=== PATIENT | male | born 1940 | race Caucasian/White ===

== ENCOUNTER 2016-12-20 11:55 | Outpatient (CLI) | payer MEDICARE, OTHER ==
[~2016-12-20] VITALS: Ht 165.1 cm; Wt 68.0 kg
[~2016-12-20 11:55] MED LIST: ASPI-481 PO; ATOR10TA23 PO; MTF1000T PO; RANITIDINE PO; TAMS-14 PO
[2016-12-20 12:03] VITALS: BP 135/63; PULSE 73; RESP 18; Ht 165.1 cm; Wt 68.0 kg
[2016-12-20] MEDS ORDERED: GABA300C16 PO (12:17)
[2016-12-20] MEDS ORDERED: SIMV20TA PO (12:17)
[2016-12-20] MEDS ORDERED: METF500T4 PO (12:17)
[2016-12-20] MEDS ORDERED: NAPR-260 PO (12:17)
[2016-12-20] MEDS ORDERED: CELE100C PO (12:17)
[2016-12-20] MEDS ORDERED: TIMO15DR16 BOTH EYES (12:17)
[2016-12-20] MEDS ORDERED: MEMA10TA16 PO (12:17)
[2016-12-20] MEDS ORDERED: LIPA1CAP6 PO (12:17)
--- NOTE | 2016-12-20 15:35 | CONS ---
Date/Time of Note Date/Time of Note DATE: 12/20/16 TIME: 15:34 Assessment/Plan Assessment/Plan Additional Assessment/Plan [facility] INITIAL OUTPATIENT CONSULTATION NOTE DATE OF CONSULTATION: 12/20/2016 PLACE OF SERVICE: [facility] ([facility] at [facility] ASSESSMENT AND PLAN: A very-pleasant 76-year-old gentleman with comorbidities including diabetes and hypercholesterolemia and known pancreatic duct and bile duct dilatation since 2014, presenting with continued dilatation of the pancreatic duct and the common bile duct with possible 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 Given lack of significant weight loss and the duration of time under careful surveillance, it is less likely that the patient has a malignant process, but the possibility still exists. Given the last MRI was in March 2016, there is benefit to repeat the axial images, preferably with same modality with pancreas protocol MRI and a careful multidisciplinary tumor board presentation of the evidence in order to plan the rest of the care. My current suspicion is that we will be repeating patient's endoscopic ultrasound evaluation in about 3-4 months and to care for the patient as an outpatient. Patient may eventually need a Whipple procedure, but currently I do not see the need to perform this operation in an urgent fashion. I explained all of the above including the reasoning behind my recommendations to the patient and his family that included his and his daughter and answered all their questions to the best my ability. I believe the patient and family appear to understand and agreed with the plans. With above assessment, I recommended the followin. Repeat pancreas protocol MRI of the abdomen 2. Tumor marker checks including CA-19-9, CA 125, CEA, and alpha-fetoprotein 3. Multidisciplinary tumor board presentation 4. Follow-up with me in the office after above is done with the goal of accomplishing this in the next 2-3 weeks 5. Likely will need repeat endoscopic ultrasound in February or March 2017 Thank you very much for having me involved in the care of this very pleasant patient and wonderful family. Please feel free to contact me with any questions at [phone]. Disclaimer: Inadvertent spelling and grammatical errors are likely due to EHR/ dictation software use and do not reflect on the quality of delivered patient care. Updated clinical summary: A very-pleasant 76-year-old gentleman with comorbidities including diabetes and hypercholesterolemia and known pancreatic duct and bile duct dilatation since 2014. CT of abdomen and pelvis May 19, 2015: Dilated pancreatic duct with abrupt tapering at the pancreatic head level. 5 mm left lower lung nodule. Cardiomegaly. Prostatomegaly. MRI of abdomen 06/20/2015: Prominent common bile duct diameter with abrupt tapering distally in the region of the ampulla of Vater. Dilated pancreatic duct. MRCP 04/12/2016: Dilated pancreatic duct and common bile duct without obvious mass (official report missing at time of this dictation). Comorbidities: 1. BMI 24.9 2. Diabetes mellitus type 2, complicated with diabetic neuropathy and neurologic manifestations 3. Hyperlipidemia 4. Benign essential hypertension 5. Benign prostatic hypertrophy; prostatomegaly on CT, 05/19/15 6. Disc disorder, lumbar spine 7. Dementia 8. Cognitive impairment/Alzheimer's (beginning phase) 9. Venous insufficiency/varicose veins 10. Right shoulder tendon tear, status post physical therapy with improvement 11. Glaucoma, left and right 12. Left chest lump, status post excision with benign findings many decades ago in [place] 13. Ex-smoker, quit 3 years ago, smoked 10 packs per day for decades 14. 5 mm left lower lung nodule, 05/19/15 15. Cardiomegaly, 05/19/15 16. Hemorrhoids 17. Gastroesophageal reflux disease 18. Gastritis 19. Small sigmoid colon polyp removed 08/09/2012 20. Status post EGD and colonoscopy 08/09/2012 at [facility] by Dr. Subramanian with above findings 21. Status post ERCP 12/07/[address] Ma at [facility] [place] 22. Status post EUS FNA and PD brushings 12/07/[address] Ma at [facility] [place]: 8 mm x 10 mm mass in the ampulla with endosonographic borders poorly defined. Intact interface was seen between the mass and the portal vein and superior mesenteric vein. Upstream pancreatic duct measured 7.6-8 mm. Common bile duct is measuring at 5 mm. Extrinsic compression was noted in the ampulla. Fine- needle aspiration showed rare atypical ductal epithelial cells, favoring reactive for both ampullary mass and pancreatic duct brushings. HISTORY OF PRESENT ILLNESS: The patient is a very pleasant 76-year-old gentleman with comorbidities including diabetes and hypercholesterolemia and known pancreatic duct and bile duct dilatation since 2014. CT of abdomen and pelvis May 19, 2015: Dilated pancreatic duct with abrupt tapering at the pancreatic head level. 5 mm left lower lung nodule. Cardiomegaly. Prostatomegaly. MRI of abdomen 06/20/2015: Prominent common bile duct diameter with abrupt tapering distally in the region of the ampulla of Vater. Dilated pancreatic duct. MRCP 04/12/2016: Dilated pancreatic duct and common bile duct without obvious mass (official report missing at time of this dictation). He was kindly referred to us for surgical consultation. He reported having a few pound weight loss and for the most part stable weight over the last number of months. His appetite has not changed. No reported issues with diarrhea or constipation, although the patient is on Creon. ALLERGIES: NO KNOWN DRUG ALLERGIES MEDICATIONS Carefully recorded and reviewed in the electronic health record system. Metformin, Creon, simvastatin, baby aspirin, and Timolol SOCIAL HISTORY: The patient lives with family.-Tob; ex-smoker, quit 3 years ago , smoked 10 packs per day for decades;-ETOH;-IVDU. Retired, used to work in a bank. FAMILY HISTORY: There are no significant medical, surgical or oncologic issues in the family as reported by the patient or reflected in the chart. REVIEW OF SYSTEMS: Other than mentioned, there are no pertinent positives or pertinent negatives in a complete 14 point review of systems. PHYSICAL EXAMINATION GENERAL: The patient appears to be a very pleasant gentleman of non- descent from /[place] background, sitting in a chair and appearing stated age and otherwise in no acute distress. BMI: 24.9 VITAL SIGNS: Carefully recorded and reviewed in the electronic health record system HEENT: Normocephalic and atraumatic. Extraocular muscles and hearing are grossly intact bilaterally and symmetrically. Sclerae are nonicteric. Oral cavity is clear; oral mucosa appear to be pink and moist. Dentition: fair. NECK: Supple. There is no lymphadenopathy or JVD. There is no submental, submandibular or supraclavicular lymphadenopathy. CHEST: Rises symmetrically with each breath; patient is breathing comfortably. There are no audible wheezes, rales or rhonchi on the gross exam. HEART: Pulse is regular and palpable on the right wrist. Capillary refill is normal. Carotid pulses are palpable bilaterally and symmetrically in the neck. EXTREMITIES: Lower extremities contain no pitting edema around the ankles bilaterally and symmetrically. ABDOMEN: Abdomen is soft, nontender and nondistended. No evidence of ascites, organomegaly, caput medusae, engorged subcutaneous veins, or other abnormalities. There are no peritoneal signs or guarding. SKIN: Appears to be pink and feels warm to touch. NEUROLOGIC: Awake, alert, and follows commands appropriately. LABORATORY DATA: Carefully reviewed and recorded in the patient's office chart. November 2016: INR 1.1. Platelet count 238. Creatinine 0.89. Albumin 3.6. Liver function and injury parameters normal. IMAGING: As above. Please note that I've personally reviewed all pertinent available images and I agree in general with their overall reported findings. Consultation Date/Type/Reason Admit Date/Time Exam/Review of Systems Vital Signs Vitals Vital Signs Date Time Temp Pulse Resp B/P Pulse Ox O2 Delivery O2 Flow Rate FiO2 12/20/16 12:03 97.9 73 18 135/63 93 Room Air COLLINS HUGHES M.D. Dec 20, 2016 15:35
== END 2016-12-20 16:23 | disposition home or self-care (01) ==
LOC: HPC 11:55
PROVIDERS: ATTEND Transplant Surgery
DX: K86.89 Other specified diseases of pancreas (principal); K83.8 Other specified diseases of biliary tract; I10 Essential (primary) hypertension; E11.9 Type 2 diabetes mellitus without complications; E78.5 Hyperlipidemia, unspecified; N40.0 Benign prostatic hyperplasia without lower urinary tract symptoms; M51.9 Unspecified thoracic, thoracolumbar and lumbosacral intervertebral disc disorder; G30.9 Alzheimer's disease, unspecified; F02.80 Dementia in other diseases classified elsewhere, unspecified severity, without behavioral disturbance, psychotic disturbance, mood disturbance, and anxiety; I87.2 Venous insufficiency (chronic) (peripheral); H40.9 Unspecified glaucoma; I51.7 Cardiomegaly; Z86.010 Personal history of colon polyps; Z87.891 Personal history of nicotine dependence; Z79.84 Long term (current) use of oral hypoglycemic drugs; Z79.82 Long term (current) use of aspirin
CPT/HCPCS: G0463

== ENCOUNTER 2017-01-31 11:12 | Outpatient (CLI) | payer MEDICARE, OTHER ==
[~2017-01-31] VITALS: Ht 165.1 cm; Wt 67.5 kg
[~2017-01-31 11:12] MED LIST changes: -ATOR10TA23 PO; +CELE100C PO; +GABA300C16 PO; +LIPA1CAP6 PO; +MEMA10TA16 PO; +METF500T4 PO; -MTF1000T PO; +NAPR-260 PO; +SIMV20TA PO; -TAMS-14 PO; +TIMO15DR16 BOTH EYES
[2017-01-31 11:43] VITALS: BP 118/64; PULSE 62; RESP 16; Ht 165.1 cm; Wt 67.5 kg
[2017-01-31] MEDS ORDERED: OMEP40CA6 PO (11:43)
--- NOTE | 2017-01-31 17:28 | CONS ---
Date/Time of Note Date/Time of Note DATE: 01/31/17 TIME: 17:22 Assessment/Plan Assessment/Plan Additional Assessment/Plan [facility] INITIAL OUTPATIENT CONSULTATION NOTE DATE OF CONSULTATION: 01/31/17 PLACE OF SERVICE: [facility] ([facility]) at [facility] ASSESSMENT AND PLAN: Double duct sign with low atypia and no mass on previous EUS and w/u. Needs repeat EUS. Discussed at length with patient and family friend and answered all questions. Patient and friend appeared to understand and agreed with plans. 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 Given lack of significant weight loss and the duration of time under careful surveillance, it is less likely that the patient has a malignant process, but the possibility still exists. Given the last MRI was in March 2016, there is benefit to repeat the axial images, preferably with same modality with pancreas protocol MRI and a careful multidisciplinary tumor board presentation of the evidence in order to plan the rest of the care. My current suspicion is that we will be repeating patient's endoscopic ultrasound evaluation in about 3-4 months and to care for the patient as an outpatient. Patient may eventually need a Whipple procedure, but currently I do not see the need to perform this operation in an urgent fashion. With above assessment, I recommended the followin. Repeat EUS 2. Tumor marker checks including CA-19-9, CA 125, CEA, and alpha-fetoprotein 3. Multidisciplinary tumor board presentation 4. Follow-up with me in the office after above is done with the goal of accomplishing this in the next 2-3 weeks 5. Likely will need close surveillance in the next 1-2 years Thank you very much for having me involved in the care of this very pleasant patient and wonderful family. Please feel free to contact me with any questions at [phone]. Disclaimer: Inadvertent spelling and grammatical errors are likely due to EHR/ dictation software use and do not reflect on the quality of delivered patient care. Updated clinical summary: A very-pleasant 76-year-old gentleman with comorbidities including diabetes and hypercholesterolemia and known pancreatic duct and bile duct dilatation since 2014. CT of abdomen and pelvis May 19, 2015: Dilated pancreatic duct with abrupt tapering at the pancreatic head level. 5 mm left lower lung nodule. Cardiomegaly. Prostatomegaly. MRI of abdomen 06/20/2015: Prominent common bile duct diameter with abrupt tapering distally in the region of the ampulla of Vater. Dilated pancreatic duct. MRCP 04/12/2016: Dilated pancreatic duct and common bile duct without obvious mass. Comorbidities: 1. BMI 24.9 2. Diabetes mellitus type 2, complicated with diabetic neuropathy and neurologic manifestations 3. Hyperlipidemia 4. Benign essential hypertension 5. Benign prostatic hypertrophy; prostatomegaly on CT, 05/19/15 6. Disc disorder, lumbar spine 7. Dementia 8. Cognitive impairment/Alzheimer's (beginning phase) 9. Venous insufficiency/varicose veins 10. Right shoulder tendon tear, status post physical therapy with improvement 11. Glaucoma, left and right 12. Left chest lump, status post excision with benign findings many decades ago in [place] 13. Ex-smoker, quit 3 years ago, smoked 10 packs per day for decades 14. 5 mm left lower lung nodule, 05/19/15 15. Cardiomegaly, 05/19/15 16. Hemorrhoids 17. Gastroesophageal reflux disease 18. Gastritis 19. Small sigmoid colon polyp removed 08/09/2012 20. Status post EGD and colonoscopy 08/09/2012 at [facility] by Dr. Subramanian with above findings 21. Status post ERCP 12/07/[address] Ma at [facility] [place] . 22. Status post EUS FNA and PD brushings 12/07/[address] Ma at [facility] [place]: 8 mm x 10 mm mass in the ampulla with endosonographic borders poorly defined. Intact interface was seen between the mass and the portal vein and superior mesenteric vein. Upstream pancreatic duct measured 7.6-8 mm. Common bile duct is measuring at 5 mm. Extrinsic compression was noted in the ampulla. Fine- needle aspiration showed rare atypical ductal epithelial cells, favoring reactive for both ampullary mass and pancreatic duct brushings. HISTORY OF PRESENT ILLNESS: The patient is a very pleasant 76-year-old gentleman, initially seen by us on 12/20/2016, with comorbidities including diabetes and hypercholesterolemia and known pancreatic duct and bile duct dilatation since 2014. CT of abdomen and pelvis May 19, 2015: Dilated pancreatic duct with abrupt tapering at the pancreatic head level. 5 mm left lower lung nodule. Cardiomegaly. Prostatomegaly. MRI of abdomen 06/20/2015: Prominent common bile duct diameter with abrupt tapering distally in the region of the ampulla of Vater. Dilated pancreatic duct. MRCP 04/12/2016: Dilated pancreatic duct and common bile duct without obvious mass (official report missing at time of this dictation). He was kindly referred to us for surgical consultation. He reported having a few pound weight loss and for the most part stable weight over the last number of months. His appetite has not changed. No reported issues with diarrhea or constipation, although the patient is on Creon. No new complaints during this visit. No reported symptoms of reflux and gastritis significantly improved on proton pump inhibition. No no abdominal pains. No changes in appetite. No changes in weight. ALLERGIES: NO KNOWN DRUG ALLERGIES MEDICATIONS Carefully recorded and reviewed in the electronic health record system. Metformin, Creon, simvastatin, baby aspirin, and Timolol SOCIAL HISTORY: The patient lives with family.-Tob; ex-smoker, quit 3 years ago , smoked 10 packs per day for decades;-ETOH;-IVDU. Retired, used to work in a bank. FAMILY HISTORY: There are no significant medical, surgical or oncologic issues in the family as reported by the patient or reflected in the chart. REVIEW OF SYSTEMS: Other than mentioned, there are no pertinent positives or pertinent negatives in a complete 14 point review of systems. PHYSICAL EXAMINATION GENERAL: The patient appears to be a very pleasant gentleman of non- descent from /[place] background, sitting in a chair and appearing stated age and otherwise in no acute distress. BMI: 24.8 (previously 24.01 December 2016) VITAL SIGNS: Carefully recorded and reviewed in the electronic health record system HEENT: Normocephalic and atraumatic. Extraocular muscles and hearing are grossly intact bilaterally and symmetrically. Sclerae are nonicteric. Oral cavity is clear; oral mucosa appear to be pink and moist. Dentition: fair. NECK: Supple. There is no lymphadenopathy or JVD. There is no submental, submandibular or supraclavicular lymphadenopathy. CHEST: Rises symmetrically with each breath; patient is breathing comfortably. There are no audible wheezes, rales or rhonchi on the gross exam. HEART: Pulse is regular and palpable on the right wrist. Capillary refill is normal. Carotid pulses are palpable bilaterally and symmetrically in the neck. EXTREMITIES: Lower extremities contain no pitting edema around the ankles bilaterally and symmetrically. ABDOMEN: Abdomen is soft, nontender and nondistended. No evidence of ascites, organomegaly, caput medusae, engorged subcutaneous veins, or other abnormalities. There are no peritoneal signs or guarding. SKIN: Appears to be pink and feels warm to touch. NEUROLOGIC: Awake, alert, and follows commands appropriately. LABORATORY DATA: Carefully reviewed and recorded in the patient's office chart. November 2016: INR 1.1. Platelet count 238. Creatinine 0.89. Albumin 3.6. Liver function and injury parameters normal. IMAGING: As above. Please note that I've personally reviewed all pertinent available images and I agree in general with their overall reported findings. Consultation Date/Type/Reason Admit Date/Time Initial Consult Date Exam/Review of Systems Vital Signs Vitals Vital Signs Date Time Temp Pulse Resp B/P Pulse Ox O2 Delivery O2 Flow Rate FiO2 01/31/17 11:43 98.0 62 16 118/64 97 Room Air COLLINS HUGHES M.D. Jan 31, 2017 17:28
== END 2017-01-31 17:00 | disposition home or self-care (01) ==
LOC: HPC 11:12
PROVIDERS: ATTEND Transplant Surgery
DX: K86.89 Other specified diseases of pancreas (principal); E11.9 Type 2 diabetes mellitus without complications; E78.00 Pure hypercholesterolemia, unspecified; N40.0 Benign prostatic hyperplasia without lower urinary tract symptoms; E78.5 Hyperlipidemia, unspecified; I10 Essential (primary) hypertension; M51.9 Unspecified thoracic, thoracolumbar and lumbosacral intervertebral disc disorder; G30.9 Alzheimer's disease, unspecified; F02.81 Dementia in other diseases classified elsewhere, unspecified severity, with behavioral disturbance; H40.9 Unspecified glaucoma; I51.7 Cardiomegaly; R91.1 Solitary pulmonary nodule; Z87.891 Personal history of nicotine dependence
CPT/HCPCS: G0463

== ENCOUNTER 2017-05-09 10:22 | Outpatient (CLI) | payer MEDICARE, OTHER ==
[~2017-05-09] VITALS: Ht 165.1 cm; Wt 69.5 kg
[~2017-05-09 10:22] MED LIST changes: +OMEP40CA6 PO; -RANITIDINE PO
[2017-05-09 10:32] VITALS: BP 122/60; PULSE 71; RESP 18; Ht 165.1 cm; Wt 69.5 kg
--- NOTE | 2017-05-09 12:00 | CONS ---
Date/Time of Note Date/Time of Note DATE: 05/09/17 TIME: 11:57 Assessment/Plan Assessment/Plan Additional Assessment/Plan [facility] OUTPATIENT CONSULTATION NOTE DATE OF CONSULTATION: 05/09/17 PLACE OF SERVICE: [facility] ([facility]) at [facility] ASSESSMENT AND PLAN: Double duct sign with low atypia and no mass on EUS x 2, but with increase in size of mass (8 mm to 33 mm per latest report). Discussed options in detail with patient and his nephew. On one hand, 2 EUS biopsies showed no atypia or evidence of malignancy. On the other hand, there is pancreatic duct dilatation which does not seem to have improved with pancreatic duct stenting and presence of a mass is seen on the endoscopic ultrasound. It is possible that pancreatic duct stenting had exacerbated pancreatitis in the localized fashion and that is the reason why received increase in size of the lesion in the pancreas. Given the stability of the clinical picture since 2014 and the relatively high morbidity and mortality of a Whipple procedure, the patient and I both agreed that he can wait another 3 months with repeating axial images with pancreas protocol to do more comparison with the prior images. He also does not have any significant clinical symptoms that could be attributed to his pancreas and therefore does not need change in medical management at this time. Discussed all of the above with the patient and family and answered all questions. Patient and family appeared to understand and agreed with plans. Previous assessment that applies today: A very-pleasant 76-year-old gentleman, initially seen here at [facility] on 12/20/2016, with comorbidities including diabetes and hypercholesterolemia and known pancreatic duct and bile duct dilatation since 2014, presenting with continued dilatation of the pancreatic duct and the common bile duct with possible 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 Given lack of significant weight loss and the duration of time under careful surveillance, it is less likely that the patient has a malignant process, but the possibility still exists. Given the last MRI was in March 2016, there is benefit to repeat the axial images, preferably with same modality with (likely another MRI MRI and a careful multidisciplinary tumor board presentation of the evidence in order to plan the rest of the care. My current suspicion is that we will be repeating patient's pancreas images and endoscopic ultrasound evaluation staggered in 3-4 month intervals and to care for the patient as an outpatient. Patient may eventually need a Whipple procedure, but currently I do not see the need to perform this operation in an urgent fashion. With above assessment, I recommended the followin. Repeat pancreas protocol MRI in July 2017 2. Tumor marker checks including CA-19-9, CA 125, CEA, and alpha-fetoprotein 3. Multidisciplinary tumor board presentation 4. Follow-up with me in the office after above is done 5. Likely will need close surveillance in the next 1-2 years Thank you very much for having me involved in the care of this very pleasant patient and wonderful family. Please feel free to contact me with any questions at [phone]. Disclaimer: Inadvertent spelling and grammatical errors are likely due to EHR/ dictation software use and do not reflect on the quality of delivered patient care. Updated clinical summary: A very-pleasant 76-year-old gentleman with comorbidities including diabetes and hypercholesterolemia and known pancreatic duct and bile duct dilatation since 2014. CT of abdomen and pelvis May 19, 2015: Dilated pancreatic duct with abrupt tapering at the pancreatic head level. 5 mm left lower lung nodule. Cardiomegaly. Prostatomegaly. MRI of abdomen 06/20/2015: Prominent common bile duct diameter with abrupt tapering distally in the region of the ampulla of Vater. Dilated pancreatic duct. MRCP 04/12/2016: Dilated pancreatic duct and common bile duct without obvious mass (official report missing at time of this dictation; official report indicated an 8 mm mass in the head of the pancreas). 03/23/17 [facility] Laboratory: AFP 2.31, CA 125 11.2, CA 19-9 10, CEA 2.16. EUS 04/05/17 pancreas head showed presence of a 33 mm mass; FNA showed benign serous acinar and ductal epithelium and no malignant cells identified. Comorbidities: 1. BMI 25.5 (previously 24.9 summer 2016) 2. Diabetes mellitus type 2, complicated with diabetic neuropathy and neurologic manifestations 3. Hyperlipidemia 4. Benign essential hypertension 5. Benign prostatic hypertrophy; prostatomegaly on CT, 05/19/15 6. Disc disorder, lumbar spine 7. Dementia 8. Cognitive impairment/Alzheimer's (beginning phase) 9. Venous insufficiency/varicose veins 10. Right shoulder tendon tear, status post physical therapy with improvement 11. Glaucoma, left and right 12. Left chest lump, status post excision with benign findings many decades ago in [place] 13. Ex-smoker, quit 3 years ago, smoked 10 packs per day for decades 14. 5 mm left lower lung nodule, 05/19/15 15. Cardiomegaly, 05/19/15 16. Hemorrhoids 17. Gastroesophageal reflux disease 18. Gastritis 19. Small sigmoid colon polyp removed 08/09/2012 20. Status post EGD and colonoscopy 08/09/2012 at [facility] by Dr. Subramanian with above findings 21. Status post ERCP 12/07/[address] Ma at [facility] [place] . 22. Status post EUS FNA and PD brushings 12/07/[address] Ma at [facility] [place]: 8 mm x 10 mm mass in the ampulla with endosonographic borders poorly defined. Intact interface was seen between the mass and the portal vein and superior mesenteric vein. Upstream pancreatic duct measured 7.6-8 mm. Common bile duct is measuring at 5 mm. Extrinsic compression was noted in the ampulla. Fine- needle aspiration showed rare atypical ductal epithelial cells, favoring reactive for both ampullary mass and pancreatic duct brushings. 23. EUS 04/05/17 pancreas head showed presence of a 33 mm mass; FNA showed benign serous acinar and ductal epithelium and no malignant cells identified. HISTORY OF PRESENT ILLNESS: The patient is a very pleasant 76-year-old gentleman, initially seen by us on 12/20/2016, with comorbidities including diabetes and hypercholesterolemia and known pancreatic duct and bile duct dilatation since 2014. CT of abdomen and pelvis May 19, 2015: Dilated pancreatic duct with abrupt tapering at the pancreatic head level. 5 mm left lower lung nodule. Cardiomegaly. Prostatomegaly. MRI of abdomen 06/20/2015: Prominent common bile duct diameter with abrupt tapering distally in the region of the ampulla of Vater. Dilated pancreatic duct. MRCP 04/12/2016: Dilated pancreatic duct and common bile duct without obvious mass (official report missing at time of this dictation). He was kindly referred to us for surgical consultation. He reported having a few pound weight loss and for the most part stable weight over the last number of months. His appetite has not changed. No reported issues with diarrhea or constipation, although the patient is on Creon. No new complaints during this visit. No reported symptoms of reflux and gastritis significantly improved on proton pump inhibition. No no abdominal pains. No changes in appetite. No changes in weight. ALLERGIES: NO KNOWN DRUG ALLERGIES MEDICATIONS Carefully recorded and reviewed in the electronic health record system. Metformin, Creon, simvastatin, baby aspirin, and Timolol SOCIAL HISTORY: The patient lives with family.-Tob; ex-smoker, quit 3 years ago , smoked 10 packs per day for decades;-ETOH;-IVDU. Retired, used to work in a bank. FAMILY HISTORY: There are no significant medical, surgical or oncologic issues in the family as reported by the patient or reflected in the chart. REVIEW OF SYSTEMS: Other than mentioned, there are no pertinent positives or pertinent negatives in a complete 14 point review of systems. PHYSICAL EXAMINATION GENERAL: The patient appears to be a very pleasant gentleman of non- descent from /[place] background, sitting in a chair and appearing stated age and otherwise in no acute distress. BMI: 25.5 (previously 24.01 December 2016 and 24.30 January 2017) VITAL SIGNS: Carefully recorded and reviewed in the electronic health record system HEENT: Normocephalic and atraumatic. Extraocular muscles and hearing are grossly intact bilaterally and symmetrically. Sclerae are nonicteric. Oral cavity is clear; oral mucosa appear to be pink and moist. Dentition: fair. NECK: Supple. There is no lymphadenopathy or JVD. There is no submental, submandibular or supraclavicular lymphadenopathy. CHEST: Rises symmetrically with each breath; patient is breathing comfortably. There are no audible wheezes, rales or rhonchi on the gross exam. HEART: Pulse is regular and palpable on the right wrist. Capillary refill is normal. Carotid pulses are palpable bilaterally and symmetrically in the neck. EXTREMITIES: Lower extremities contain 2+ pitting edema around the ankles on the left and 1+ pitting edema on the right (per patient, long-standing problem present prior to his pancreas issues). ABDOMEN: Abdomen is soft, nontender and nondistended. No evidence of ascites, organomegaly, caput medusae, engorged subcutaneous veins, or other abnormalities. There are no peritoneal signs or guarding. SKIN: Appears to be pink and feels warm to touch. NEUROLOGIC: Awake, alert, and follows commands appropriately. LABORATORY DATA: Carefully reviewed and recorded in the patient's office chart. November 2016: INR 1.1. Platelet count 238. Creatinine 0.89. Albumin 3.6. Liver function and injury parameters normal. 03/21/2017: CA 1 2511.2, CA-19-9 10, CEA 2.16 IMAGING: As above. Please note that I've personally reviewed all pertinent available images and I agree in general with their overall reported findings. Consultation Date/Type/Reason Admit Date/Time Exam/Review of Systems Vital Signs Vitals Vital Signs Date Time Temp Pulse Resp B/P Pulse Ox O2 Delivery O2 Flow Rate FiO2 05/09/17 10:32 97.6 71 18 122/60 96 Room Air COLLINS HUGHES M.D. May 09, 2017 12:00
== END 2017-05-09 17:00 | disposition home or self-care (01) ==
LOC: HPC 10:22
PROVIDERS: ATTEND Transplant Surgery
DX: K86.9 Disease of pancreas, unspecified (principal); I10 Essential (primary) hypertension; E11.9 Type 2 diabetes mellitus without complications; E78.00 Pure hypercholesterolemia, unspecified; E78.5 Hyperlipidemia, unspecified; N40.0 Benign prostatic hyperplasia without lower urinary tract symptoms; M51.9 Unspecified thoracic, thoracolumbar and lumbosacral intervertebral disc disorder; G30.9 Alzheimer's disease, unspecified; F02.80 Dementia in other diseases classified elsewhere, unspecified severity, without behavioral disturbance, psychotic disturbance, mood disturbance, and anxiety; H40.9 Unspecified glaucoma; I87.2 Venous insufficiency (chronic) (peripheral); I51.7 Cardiomegaly; Z86.010 Personal history of colon polyps; Z87.891 Personal history of nicotine dependence; Z79.84 Long term (current) use of oral hypoglycemic drugs; Z79.82 Long term (current) use of aspirin
CPT/HCPCS: G0463

== ENCOUNTER 2017-08-22 12:32 | Outpatient (CLI) | END 2017-08-22 15:31 | disposition home or self-care (01) ==

== ENCOUNTER 2017-09-05 12:48 | Outpatient (CLI) | END 2017-09-05 15:54 | disposition home or self-care (01) ==